=== PATIENT | male | born 1965 | race Caucasian/White ===

== ENCOUNTER → 2016-10-22 | Outpatient (CLI) | payer OTHER ==
[~2016-10-22] MED LIST: GABAPENTIN PO; INSULIN PEN SQ
--- NOTE | ~2016-10-22 | XA170 ---
[facility] A Service of [facility] & [facility] RADIOLOGY TEXT RESULTS PATIENT: SAGE ESTEVEZ LOCATION: [facility] : 63 UNIT #: [id number] AGE: [address]: Ramez Pinzon MD SEX: M ORDER DR: [id number] [facility] [address] [place], [place] [address] [id number] O MR#: [id number] Acc #: [id number] NAME: SAGE ESTEVEZ : 1965 SEX: M STUDY DATE/TIME: 10/22/2016 14:59 UNIT: [facility] ROOM: STUDY DESCRIPTION: XA Paracentesis W Image Attending Physician: Ramez Pinzon M.D. Referring Physician: Ramez Pinzon M.D. Ordering Physician: Ramez Pinzon M.D. Primary Care Physician: Rigo Dooley M.D. MEDICAL IMAGING REPORT This report is preliminary unless electronic signature is present EXAM Abdominal ultrasound, 10/23/2015 INDICATION Screening for ascites. HISTORY Abdominal distension, suspected ascites. Large volume paracentesis requested. FINDINGS Screening ultrasound of the abdomen reveal no identifiable ascites. No paracentesis was performed at this time. Dictated by... Ashish Renee M.D. THIS IS AN ELECTRONICALLY VERIFIED REPORT Ashish Renee M.D. at 10/23/2016 11:48 AM OWEN/norah TD: 10/23/2016 05:42 JOB #: [id number] MEDICAL IMAGING REPORT COPY
[2016-10-22 12:38] LABS: HEMATOCRIT 37.2 % (38.0-50.0); HEMOGLOBIN 12.1 gm/dL (13.0-16.0); MEAN CELL VOLUME 89.3 FL (83-96); MEAN CORPUSCULAR HGB CONC 32.5 g/dL (30-36); MEAN PLATELET VOLUME 10.4 FL (6.5-11.5); RED BLOOD COUNT 4.17 X10e (3.90-5.60); RED CELL DISTRIBUTION WIDTH 13.7 % (11.0-15.5); WHITE BLOOD COUNT 5.9 X10e3 (4.0-10.5)
[2016-10-22 12:55] LABS: ALBUMIN SERUM 2.3 g/dL (3.5-5.0); ALKALINE PHOSPHATASE 76 U/L (32-92); ALT (SGPT) 18 U/L (10-40); AST (SGOT) 24 U/L (10-42); BILIRUBIN,TOTAL 0.6 mg/dL (0.2-2.0); BLOOD UREA NITROGEN 27 mg/dL (9-23); CALCIUM SERUM 8.3 mg/dL (8.4-10.2); CARBON DIOXIDE 25 mmol/L (22-31); CHLORIDE 104 mmol/L (100-111); GLOM FILT RATE Estimated ABOVE60 mL/min (>60); GLUCOSE FASTING 260 mg/dL (70-110); POTASSIUM 4.7 mmol/L (3.5-5.1); PROTEIN TOTAL SERUM 6.4 g/dL (6.0-8.3); SODIUM 135 mmol/L (135-145)
[2016-10-22 13:35] LABS: PARTIAL THROMBOPLASTIN TIME 30.1 SECONDS (23.5-31.3); PROTHROMBIN TIME (PATIENT) 10.7 SECONDS (9.6-11.5)
[2016-10-25 17:13] LABS: HA AB IGM (HEPPAN) Nonreactive (Nonreactive); HB CORE AB IGM (HEPPAN) Nonreactive (Nonreactive); HB S AG (HEPPAN) Nonreactive (Nonreactive); HEP C AB (HEPPAN) Reactive (Nonreactive)
== END | disposition home or self-care (01) ==
LOC: CIVR 11:51
PROVIDERS: Internal Medicine
DX: K74.60 Unspecified cirrhosis of liver (principal); R18.8 Other ascites
CPT/HCPCS: 36415; 76705; 80053; 80074; 82105; 85027; 85610; 85730; 87522